=== PATIENT | male | born 1955 | race Caucasian/White ===

== ENCOUNTER → 2018-07-27 11:54 | Outpatient (CLI) | payer OTHER, SELFPAY ==
[2018-07-06 14:24] VITALS: BMI 32.0
--- NOTE | 2018-07-27 13:02 | PCM.CR.HP2 ---
CR - History & Physical - General Arrival date:: 07/27/18 Arrival time:: 12:00 Date of Referral:: 07/06/18 Date of CR Evaluation:: 07/27/18 Referring Physician: Mario Machado Primary Diagnosis: AMI < 12months, PTCA w/coronary stent - History of Present Cardiac Event Onset Date: Enter Onset Date of cardiac illnesses in Comment field below Acute Myocardial Infarction within 12 months:: Yes - 08/2017 PTCA or coronary stenting:: Yes - 08/2017 Type of Symptoms:: Having exacerbation thought to be related to lung history. Alot of back and chest pain originally thought it was due to her lung disease. - Medications Home Medications: Ambulatory Orders Medication Instructions Recorded albuterol sulfate HFA 90 2 puff INHALATION Q6H PRN 07/05/18 mcg/actuation aerosol inhaler atorvastatin 80 mg tablet 80 mg PO DAILY 07/05/18 ibuprofen 800 mg tablet 800 mg PO TID PRN 07/05/18 levothyroxine 175 mcg tablet 175 mcg PO DAILY 07/05/18 lisinopril 10 mg tablet 10 mg PO DAILY 07/05/18 metoprolol tartrate 25 mg tablet 25 mg PO BID 07/05/18 prednisone 5 mg tablet 5 mg PO DAILY 07/05/18 ticagrelor 90 mg tablet 90 mg PO BID 07/05/18 pantoprazole 40 mg tablet,delayed 40 mg PO DAILY 07/06/18 release spironolactone 25 mg tablet 12.5 mg PO DAILY tab 07/06/18 - Allergies Allergies/Adverse Reactions: Allergies amoxicillin Allergy (Unknown, Verified 07/06/18 14:27) unknown ampicillin Allergy (Unknown, Verified 07/06/18 14:27) unknown azithromycin [Zithromax] Allergy (Unknown, Verified 07/06/18 14:27) unknown cephalexin [From Keflex] Allergy (Unknown, Verified 07/06/18 14:27) unknown Cephalosporins Allergy (Unknown, Verified 07/06/18 14:27) unknown Penicillins Allergy (Unknown, Verified 07/06/18 14:27) Unknown enalapril Adverse Reaction (Unknown, Verified 07/06/18 14:27) unknown hydromorphone [From Dilaudid] Adverse Reaction (Unknown, Verified 07/06/18 14:27) unknown propylthiouracil Adverse Reaction (Unknown, Verified 07/06/18 14:27) unknown - Sleep Disorder Evaluation Hx of Sleep Apnea: Yes Do you snore loudly (louder than talking or can be heard through closed doors)?: Yes - first diagnosed with Pulm Fibrosis had sleep study and CPAP but was not able to tolerate due to the PF. Do you often feel tired/ fatigued/ sleepy during daytime?: No Has anyone observed you stop breathing during sleep?: No History of Hypertension (for STOP score): Yes STOP Results: Positive Advanced Directives - Advanced Directives Power of Case Management Rn: No Living Will: No Advance Directives Information Provided: Yes Advance Directives on File: No DNR Order?:: No - MOLST See MOLST form: No Past Medical History - Past Medical Illness Medical History: Past Medical History (Last Updated 07/27/18 @ 13:12 by Chin Ellis, AKASH, MIXING ROLL OPERATOR, BS) Hypertension (Chronic) I10 Hyperlipidemia (Chronic) E78.5 History of non-ST elevation myocardial infarction (NSTEMI) (Chronic) Onset Date: 09/12/17 I25.2 Atherosclerotic heart disease of [place] coronary artery without angina pectoris (Chronic) I25.10 Hx of NSTEMI and PCI to mid LAD 09/12/[address] Jose Herrera @ [facility] Pulmonary fibrosis (Chronic) J84.10 Hypothyroidism (Chronic) E03.9 COPD (chronic obstructive pulmonary disease) (Chronic) J44.9 FH: cholecystectomy Z83.79 biopsy; open lung cesarian section hysterectomy - Past Surgical History Surgical History: Past Surgical History (Last Updated 07/27/18 @ 13:11 by Chin Ellis CRT, MIXING ROLL OPERATOR, BS) History of thyroidectomy (Chronic) Z98.890 Stented coronary artery (Chronic) Onset Date: 09/12/17 Z95.5 3mm X 18 mm Xience Radha ARI to mid LAD per Dr. Jose Herrera @ [place] History of cholecystectomy Z90.49 - Family History Summary Family History: Family History (Last Reviewed 07/06/18 @ 14:24 by Yanni Luna) Father Negative for CAD Mother Negative for CAD Social History - Smoking History Smoking Status: Never smoker Hx Tobacco Use: No Hx Smoking Exposure: No - Alcohol Use Alcohol Usage: Yes - occasionally; wine 1-2 glassses week. 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 Recreational Activities: I am able to engage in all my recreational activities Social Environment - Status Marital Status: - Current Living Arrangements Living Environment:: Spouse - Children How many children do you have?: 5 - 1 of twins still at home Do any of your children live nearby?: Yes - Safety Do you feel safe in your surroundings?: Yes - Assistance Do you need any assistance at home?: none Review of Systems - Review of Systems Hints: Right click = Denies (Slash). Left click = Reports ([place]) Review of Present Symptoms: Reports: Shortness of Breath at Rest - occasionally due to the interstitial PF, Shortness of Breath with Exertion - depending on the day and what I am doing it can be worse. Yesterday, fore example raining cold damp was a bad day., Appetite - Normal, Appetite - Special Diet - try to watch what I eat, portion control, but not real special. Avoid extra sweets and bad foods., Sleep - Normal. Denies: Operative Discomfort, Angina, Dizziness/Lightheadedness, Fatigue - Pain Is Patient Pain Free?: No Pain Location: none Pain Level: 0/10 Risk Factor Assessment - Chief Complaint Chief Complaint: Patient presents to CR today following recent evaluation by Dr. Machado. The patient has a history of interstitial pulmonary fibrosis and originally though her problems were related to her lung disease, she essentially had a CT and subsequent PTCA w/ coronary stents in August 2017. - Vital Signs Temperature: 98.7 F Respiratory Rate: 18 Pulse Ox: 64 - at rest with 2 liters; at home can take it off when at rest. Blood Pressure: 120/70 Nailbeds:: normal - Pulse Pulse Rate: 64 Pulse Rhythm: Regular - Hypertension How long have you been treated?: 26 Blood Pressure Sitting - Right Arm: 120/70 - diagnosed with pregancy 26 years ago been on meds since - Diabetes Nutrition Referral for Diabetes: No - Obesity Height: 5 ft 9.5 in Weight:: 220 lb Weight in Pounds: 220.0 lbs Weight Source: Standing Scale Body Mass Index (BMI): 32.0 Nutritional Referral for Obesity: Yes - Physical Inactivity Physical Inactivity: Reg Exercise 30 min/day - Risk Stratification Risk Guidelines: Lowest Risk: Risk Factor for Smoking, Risk Factor for Dyslipidemia, Risk Factor for Diabetes, Risk Factor for Hypertension, Risk Factor for Sedentary Lifestyle, Risk Factor for Depression, Highest Risk: Risk Factor for Obesity - For Smoking Smoking Risk Guidelines: Smoking Low Risk: None or quit greater than 6 months ago. Smoking Moderate Risk: Smoker or quit 6 months or less ago. Smoking High Risk: Smoker - For Dyslipidemia Dyslipidemia Risk Guidelines: Low Risk: Moderate Risk: High Risk: 15-25% fat 25.1-29% fat >/= 30% fat. <7% sat fat 7-9% sat fat >9% sat fat. <150 mg chol 150-299 mg chol >/= 300 mg chol. LDL <100 LDL 100-129 LDL >/= 130. Chol/HDL ratio <5.0 Chol/HDL ratio 5.0-6.0 Chol/HDL ratio >6.0. Triglycerides <100 Triglycerides 100-149 Triglycerides >/= 150 - For Diabetes Mellitus Diabetes Risk Guidelines: Diabetes Low Risk: HgA1c <6.5% and/or FBG <120. Diabetes Moderate Risk: HgA1c 6.6-7.9% and/or FBG 120-180. Diabetes High Risk: HgA1c >/= 8% and/or FBG >180 - For Obesity/Overweight Obesity/Overweight Risk Guidelines: Obesity Low Risk: BMI <25.0. Obesity Moderate Risk: BMI 25-29.9. Obesity High Risk: BMI >/= 30.0 - For Hypertension Hypertension Risk Guidelines: Hypertension Low Risk: Systolic <120 and Diastolic <80. Hypertension Moderate Risk: Systolic 120-139 and Diastolic 80-89. Hypertension High Risk: Systolic >/= 140 and Diastolic >/= 90 - For Sedentary Lifestyle Sedentary Lifestyle Risk Guidelines: Sedentary Lifestyle Low Risk: >/= 1,500 kcal/week. Sedentary Lifestyle Moderate Risk: 700-1,499 kcal/week. Sedentary Lifestyle High Risk: < 700 kcal/week - For Depression Depression Risk Guidelines: Depression Low Risk: Not clinically depressed. Depression Moderate Risk: Mildly depressed. Depression High Risk: Clinically depressed - Family History Family History: Family History (Last Reviewed 07/06/18 @ 14:24 by Yanni Luna) Father Negative for CAD Mother Negative for CAD Motivation - Motivation to Participate On a scale of 1 to 10, how prepared are you to commit to attending program?: 8 What do you see as barriers to successfully being able to complete the program?: couple of missed sessions due to licensure etc. What do you see as the benefits of succesfully completing the program? In other words, what do you hope to get out of participating in the program?: improved health, learning on how to exercise corectly, controlling breathe Are there issues you are dealing with that will interfere with completing the program?: Scheduled vacation, licensure requirements, cause me to miss a few sessions Do you have a spouse or signficant other, family or friends who will help support you to complete the program?: yes.
--- NOTE | 2018-07-27 13:06 | CR.HP_ITS ---
CR - History & Physical - General Arrival date:: 07/27/18 Arrival time:: 12:00 Date of Referral:: 07/06/18 Date of CR Evaluation:: 07/27/18 Referring Physician: Mario Machado Primary Diagnosis: AMI < 12months, PTCA w/coronary stent - History of Present Cardiac Event Onset Date: Enter Onset Date of cardiac illnesses in Comment field below Acute Myocardial Infarction within 12 months:: Yes - 08/2017 PTCA or coronary stenting:: Yes - 08/2017 Type of Symptoms:: Having exacerbation thought to be related to lung history. Alot of back and chest pain originally thought it was due to her lung disease. - Medications Home Medications: Ambulatory Orders Medication Instructions Recorded albuterol sulfate HFA 90 2 puff INHALATION Q6H PRN 07/05/18 mcg/actuation aerosol inhaler atorvastatin 80 mg tablet 80 mg PO DAILY 07/05/18 ibuprofen 800 mg tablet 800 mg PO TID PRN 07/05/18 levothyroxine 175 mcg tablet 175 mcg PO DAILY 07/05/18 lisinopril 10 mg tablet 10 mg PO DAILY 07/05/18 metoprolol tartrate 25 mg tablet 25 mg PO BID 07/05/18 prednisone 5 mg tablet 5 mg PO DAILY 07/05/18 ticagrelor 90 mg tablet 90 mg PO BID 07/05/18 pantoprazole 40 mg tablet,delayed 40 mg PO DAILY 07/06/18 release spironolactone 25 mg tablet 12.5 mg PO DAILY tab 07/06/18 - Allergies Allergies/Adverse Reactions: Allergies amoxicillin Allergy (Unknown, Verified 07/06/18 14:27) unknown ampicillin Allergy (Unknown, Verified 07/06/18 14:27) unknown azithromycin [Zithromax] Allergy (Unknown, Verified 07/06/18 14:27) unknown cephalexin [From Keflex] Allergy (Unknown, Verified 07/06/18 14:27) unknown Cephalosporins Allergy (Unknown, Verified 07/06/18 14:27) unknown Penicillins Allergy (Unknown, Verified 07/06/18 14:27) Unknown enalapril Adverse Reaction (Unknown, Verified 07/06/18 14:27) unknown hydromorphone [From Dilaudid] Adverse Reaction (Unknown, Verified 07/06/18 14:27) unknown propylthiouracil Adverse Reaction (Unknown, Verified 07/06/18 14:27) unknown - Sleep Disorder Evaluation Hx of Sleep Apnea: Yes Do you snore loudly (louder than talking or can be heard through closed doors)?: Yes - first diagnosed with Pulm Fibrosis had sleep study and CPAP but was not able to tolerate due to the PF. Do you often feel tired/ fatigued/ sleepy during daytime?: No Has anyone observed you stop breathing during sleep?: No History of Hypertension (for STOP score): Yes STOP Results: Positive Advanced Directives - Advanced Directives Power of Auxiliary Powerplant Operator: No Living Will: No Advance Directives Information Provided: Yes Advance Directives on File: No DNR Order?:: No - MOLST See MOLST form: No Past Medical History - Past Medical Illness Medical History: Past Medical History (Last Updated 07/27/18 @ 13:12 by Chin Ellis, AKASH, FOREST AND CONSERVATION WORKER, BS) Hypertension (Chronic) I10 Hyperlipidemia (Chronic) E78.5 History of non-ST elevation myocardial infarction (NSTEMI) (Chronic) Onset Date: 09/12/17 I25.2 Atherosclerotic heart disease of [place] coronary artery without angina pectoris (Chronic) I25.10 Hx of NSTEMI and PCI to mid LAD 09/12/[address] Jose Herrera @ [facility] Pulmonary fibrosis (Chronic) J84.10 Hypothyroidism (Chronic) E03.9 COPD (chronic obstructive pulmonary disease) (Chronic) J44.9 FH: cholecystectomy Z83.79 biopsy; open lung cesarian section hysterectomy - Past Surgical History Surgical History: Past Surgical History (Last Updated 07/27/18 @ 13:11 by Chin Ellis CRT, FOREST AND CONSERVATION WORKER, BS) History of thyroidectomy (Chronic) Z98.890 Stented coronary artery (Chronic) Onset Date: 09/12/17 Z95.5 3mm X 18 mm Xience Radha ARI to mid LAD per Dr. Jose Herrera @ [place] History of cholecystectomy Z90.49 - Family History Summary Family History: Family History (Last Reviewed 07/06/18 @ 14:24 by Yanni Luna) Father Negative for CAD Mother Negative for CAD Social History - Smoking History Smoking Status: Never smoker Hx Tobacco Use: No Hx Smoking Exposure: No - Alcohol Use Alcohol Usage: Yes - occasionally; wine 1-2 glassses week. 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 Recreational Activities: I am able to engage in all my recreational activities Social Environment - Status Marital Status: - Current Living Arrangements Living Environment:: Spouse - Children How many children do you have?: 5 - 1 of twins still at home Do any of your children live nearby?: Yes - Safety Do you feel safe in your surroundings?: Yes - Assistance Do you need any assistance at home?: none Review of Systems - Review of Systems Hints: Right click = Denies (Slash). Left click = Reports ([place]) Review of Present Symptoms: Reports: Shortness of Breath at Rest - occasionally due to the interstitial PF, Shortness of Breath with Exertion - depending on the day and what I am doing it can be worse. Yesterday, fore example raining cold damp was a bad day., Appetite - Normal, Appetite - Special Diet - try to watch what I eat, portion control, but not real special. Avoid extra sweets and bad foods., Sleep - Normal. Denies: Operative Discomfort, Angina, Dizziness/Lightheadedness, Fatigue - Pain Is Patient Pain Free?: No Pain Location: none Pain Level: 0/10 Risk Factor Assessment - Chief Complaint Chief Complaint: Patient presents to CR today following recent evaluation by Dr. Machado. The patient has a history of interstitial pulmonary fibrosis and originally though her problems were related to her lung disease, she essentially had a [place] and subsequent PTCA w/ coronary stents in August 2017. - Vital Signs Temperature: 98.7 F Respiratory Rate: 18 Pulse Ox: 64 - at rest with 2 liters; at home can take it off when at rest. Blood Pressure: 120/70 Nailbeds:: normal - Pulse Pulse Rate: 64 Pulse Rhythm: Regular - Hypertension How long have you been treated?: 26 Blood Pressure Sitting - Right Arm: 120/70 - diagnosed with pregancy 26 years ago been on meds since - Diabetes Nutrition Referral for Diabetes: No - Obesity Height: 5 ft 9.5 in Weight:: 220 lb Weight in Pounds: 220.0 lbs Weight Source: Standing Scale Body Mass Index (BMI): 32.0 Nutritional Referral for Obesity: Yes - Physical Inactivity Physical Inactivity: Reg Exercise 30 min/day - Risk Stratification Risk Guidelines: Lowest Risk: Risk Factor for Smoking, Risk Factor for Dyslipidemia, Risk Factor for Diabetes, Risk Factor for Hypertension, Risk Factor for Sedentary Lifestyle, Risk Factor for Depression, Highest Risk: Risk Factor for Obesity - For Smoking Smoking Risk Guidelines: Smoking Low Risk: None or quit greater than 6 months ago. Smoking Moderate Risk: Smoker or quit 6 months or less ago. Smoking High Risk: Smoker - For Dyslipidemia Dyslipidemia Risk Guidelines: Low Risk: Moderate Risk: High Risk: 15-25% fat 25.1-29% fat >/= 30% fat. <7% sat fat 7-9% sat fat >9% sat fat. <150 mg chol 150-299 mg chol >/= 300 mg chol. LDL <100 LDL 100-129 LDL >/= 130. Chol/HDL ratio <5.0 Chol/HDL ratio 5.0-6.0 Chol/HDL ratio >6.0. Triglycerides <100 Triglycerides 100-149 Triglycerides >/= 150 - For Diabetes Mellitus Diabetes Risk Guidelines: Diabetes Low Risk: HgA1c <6.5% and/or FBG <120. Diabetes Moderate Risk: HgA1c 6.6-7.9% and/or FBG 120-180. Diabetes High Risk: HgA1c >/= 8% and/or FBG >180 - For Obesity/Overweight Obesity/Overweight Risk Guidelines: Obesity Low Risk: BMI <25.0. Obesity Moderate Risk: BMI 25-29.9. Obesity High Risk: BMI >/= 30.0 - For Hypertension Hypertension Risk Guidelines: Hypertension Low Risk: Systolic <120 and Diastolic <80. Hypertension Moderate Risk: Systolic 120-139 and Diastolic 80-89. Hypertension High Risk: Systolic >/= 140 and Diastolic >/= 90 - For Sedentary Lifestyle Sedentary Lifestyle Risk Guidelines: Sedentary Lifestyle Low Risk: >/= 1,500 kcal/week. Sedentary Lifestyle Moderate Risk: 700-1,499 kcal/week. Sedentary Lifestyle High Risk: < 700 kcal/week - For Depression Depression Risk Guidelines: Depression Low Risk: Not clinically depressed. Depression Moderate Risk: Mildly depressed. Depression High Risk: Clinically depressed - Family History Family History: Family History (Last Reviewed 07/06/18 @ 14:24 by Yanni Luna) Father Negative for CAD Mother Negative for CAD Motivation - Motivation to Participate On a scale of 1 to 10, how prepared are you to commit to attending program?: 8 What do you see as barriers to successfully being able to complete the program?: couple of missed sessions due to licensure etc. What do you see as the benefits of succesfully completing the program? In other words, what do you hope to get out of participating in the program?: improved health, learning on how to exercise corectly, controlling breathe Are there issues you are dealing with that will interfere with completing the program?: Scheduled vacation, licensure requirements, cause me to miss a few sessions Do you have a spouse or signficant other, family or friends who will help support you to complete the program?: yes.
--- NOTE | 2018-07-27 13:23 | CR.ITP_ITS ---
General Information - General Information Admitting Diagnosis: AMI <12 MONTHS, PTCA W/STENTS - Education/Goals Barriers to Learning: None Individual Counseling: Initial Assessment: High Blood Pressure, Overweight/Obesity Cardiac Rehabilitation Goals: 1. Maintain the individual as the primary focus of care. 2. To improve the patient's quality of life. 3. Identification of cardiac risk factors and provide cardiac risk factor management. 4. Enhance the psychosocial status of the patient. 5. Reconditioning enough to allow the patient to resume customary activities. 6. Control symptoms of cardiac disease Scale for measuring improvement of personal goals: Enter appropriate number in Comments. 2 = Unchanged. 3 = Slightly Better. 4 = Moderate Improvement. 5 = Met my Goal Personal Goals: Initial Assessment: Improve management of stress and emotions, Improve energy level, Participate in home exercise program, Improve knowledge of cardiac disease, Improve muscle strength and endurance, Control risk factors (learn risk factor modification) Exercise - Initial Assessment - Visit Date of Eval: 07/27/18 Session #:: 0 - Start - Stages of Change Stages of Change:: Action - Physician Prescribed Exercise Modalities: Treadmill, Airdyne, NuStep, SciFit Frequency (days/week): 3x/week for 12 weeks [36 sessions] Intensity: 60-80% age predicted maximum heart rate reserve METs - Progression: 0.5-1.0 MET, RPE 11-14 WEEK: 2.5 Target Heart Rate:: 110-126 - Hypertension Do any of the following apply?: Yes, Medication Resting Blood Pressure:: 120/70 - Intervention Home Exercise/Activity Goal:: Moderate Exercise 30 min/day x 5 days/wk - Education Goals:: Warm-up, RPE TOMASA Scale, S/S, Safe Exercise, Self-Monitoring - Exercise Program Goals Exercise Program Goals: Aerobic Activity >30 min Nutrition - Initial Assessment - Program Goals Nutrition Program Goals: LDL <70. Total Cholesterol <200. HDL >45. Triglycerides <150. HgbA1C <7%. BMI <25 - Visit Date of Assessment:: 07/27/18 - Stages of Change Stages of Change:: Action - Diabetes Diabetes:: No - Weight Management Height: 5 ft Weight:: 220 lb - Intervention Referral to dietitian:: No Referral to Diabetic Clinic:: No Will attend diet classes:: Yes - Education Gave educational materials for:: Healthy eating Tobacco - Initial Assessment - Program Goals Tobacco Program Goals: Complete smoking cessation. Attend education classes. Improve Knowledge Test score - Stage of Change Stages of Change:: Action - Learning Barriers Learning Barriers: Ready to Learn - Family Support Do you have family support?: Yes - Tobacco Use Tobacco Use: Non-smoker Do you use smokeless tobacco?: No - Intervention Smoking Cessation Referral:: No Individual Education/Counseling:: No Education Schedule Given:: Yes - Education Gave educational material for:: Coronary artery disease, Risk factors, Sexuality, Medical compliance, Cardiac A&P, Angina signs & symptoms Psychosocial - Initial Assess - Target Goals Target Goals: Assess presence or absence of depression. Using a valid screening tool, maximizes coping skills. Positive support system - Stages of Change Stages of Change:: Action - Psychosocial Test Tool Used:: HANDS Depression Questionnaire - Intervention PS - Interventions: Yes Attend Stress Management Classes, Yes Uses Stress Management Skills, No Referral to Mental Health, No Referral to [facility] Case Management, No Referral to Physician - Education Gave educational materials for:: Coping techniques, Signs & symptoms of depression, Stress management, Relaxation techniques - Patient/Program Goal Preventative Medication(s):: Aspirin, Clopidogrel, Beta harish, Statin/lipid - Assistive Devices Assistive Devices:: None Fall Risk Assessed:: Yes Patient Health Questionnaire Initial Assessment 1. Little interest or pleasure in doing things: Not at all 2. Feeling down, depressed, or hopeless: Not at all 3. Trouble falling or staying asleep, or sleeping too much: Not at all 4. Feeling tired or having little energy: More than half the days 5. Poor appetite or overeating: Not at all 6. Feeling bad about yourself -- or that you are a failure or have let yourself or your family down: Not at all 7. Trouble concentrating on things, such as reading the newspaper or watching television: Not at all 8. Moving or speaking so slowly that other people could have noticed. Or the opposite - being so fidgety or restless that you have been moving around a lot more than usual: Not at all 9. Thoughts that you would be better off , or of hurting yourself in some way: Not at all How difficult have these problems made it for you to do your work, take care of things at home, or get along with other people?: Not difficult at all Total Score: 2 DORA-Q SV Test - Statements CAD is a disease of the arteries in the heart: False Examples of risk factors for heart disease: True Angina is chest pain or discomfort: True The benefits of resistance training include: True Eating more meat and dairy products: False Anti-platelet medications such as aspirin are important: True The only effective way to manage stress: False An exercise warm-up slowly increases heart rate: True Prepared, processed foods usually have high sodium: True Depression is common after a heart attack: False The statin medications lower cholesterol: True To control blood pressure, lower the amount of sodium: True If someone gets chest discomfort during walking: True Transfats are partially hydrogenated vegetable oils: True Sleep apnea that is not treated increases the risk: I Don't Know To control cholesterol, one should become a vegetarian: False Someone knows if he/she is exercising at the right level: False Diabetes cannot be prevented with exercise & health eating: False Stress is a large risk for heart attack: True A diet that can help lower blood pressure is rich in: True - Total Score Total Correct Responses: 16 Self-Efficacy Initial Assessment We would like to know how confident you are in doing certain activities. Please select your confidence level for:: Select your confidence level for the following using the scale 1-10 where 1 is not at all confident and 10 is totally confident. Your score is the average of all 6 responses. Fatigue: How confident are you that you can keep the fatigue caused by your disease from interfering with the things you want to do? Select Number: 6 Physical Discomfort or Pain: How confident are you that you can keep the physical discomfort or pain of your disease from interfering with the things you want to do? Select Number: 6 Emotional Distress: How confident are you that you can keep the emotional distress caused by your disease from interfering with the things you want to do? Select Number: 5 Other Symptoms or Health Problems: How confident are you that you can keep other symptoms or health problems from interfering with the things you want to do? Select Number: 6 Different Tasks and Activities: How confident are you that you can do the different tasks and activities needed to manage your health condition so as to reduce your need to see a doctor? Select Number: 6 Medication: How confident are you that you can do things other than just taking medication to reduce how much your illness affects your everyday life? Select Number: 8 Total Score:: 6 Nutrition Survey - Nutrition Survey Instructions Scoring Instructions: Scoring is as follows: Yes = 1 points. No = 0 point. Patient score that is >/=12 is considered to be at potential nutritional risk and could benefit from a referral to a registered dietitian. - Nutrition Survey Initial Have you lost >10 lbs over the past 2 months without trying?: No Are you following a special diet at home for diabetes, low fat, or low salt?: Yes Are you interested in meeting with a dietitian for help understanding your diet?: No Do you eat less than 3 meals a day?: No Do you eat fatty meats (ruiz, sausage, ribs, etc), fried foods, desserts, large amounts of salad dressings, margarine, butter, or cheese most days?: Yes Do you have food allergies? [Enter types in comment field]: No Do you eat in restaurants more than 3 times a week?: Yes Do you season food with salt, seasoning salt, or garlic salt?: Yes Do you used canned, boxed, frozen meals, or soups, seasoning packets?: Yes Total Score:: 5
[2018-07-27 13:27] VITALS: BP 120/70; PULSE 64; RESP 18; TEMP 37.1; O2SAT 64; BMI 32.0
[2018-07-27 13:38] VITALS: BP 120/70
== END ==
PROVIDERS: Family Provider Family Medicine; PCP Family Medicine; Referring Provider Internal Medicine Cardiovascular Disease; Visit Provider Internal Medicine Cardiovascular Disease
DX: Z95.5 Presence of coronary angioplasty implant and graft (principal)

== ENCOUNTER 2018-08-02 06:38 | Outpatient (RCR) | payer OTHER, SELFPAY ==
[2018-07-27 13:27] VITALS: BMI 32.0
== END 2018-08-27 23:59 ==
LOC: CR 06:38
PROVIDERS: Family Provider Family Medicine; PCP Family Medicine; Referring Provider Internal Medicine Cardiovascular Disease; Visit Provider Internal Medicine Cardiovascular Disease
DX: I25.10 Atherosclerotic heart disease of native coronary artery without angina pectoris (principal); Z95.5 Presence of coronary angioplasty implant and graft
CPT/HCPCS: 93798

== ENCOUNTER → 2018-08-09 12:48 | Outpatient (CLI) | payer OTHER, SELFPAY ==
[2018-07-06 14:24] VITALS: BMI 32.0
[2018-08-04 10:58] VITALS: BMI 32.5
--- NOTE | 2018-08-09 12:51 | ECHOCS_ITS ---
Reason For Study: PHTN Procedure This was a 2D Doppler, Color Flow transthoracic echocardiogram. Contrast injection was performed. Exam performed in department. Left Ventricle Normal size and thickness. The estimated ejection fraction is 65 %. Stage 1 diastolic dysfunction. No regional wall motion abnormalities noted. Right Ventricle Mildly dilated right ventricle. Normal systolic function. Atria Normal left atrium. Normal right atrium. Normal atrial septum. Mitral Valve The mitral valve is structurally normal. No prolapse or stenosis seen. Trivial mitral valve insufficiency. Tricuspid Valve Normal tricuspid valve. Trivial tricuspid valve insufficiency. Right ventricular systolic pressure estimated to be 53 mmHg. Moderate pulmonary hypertension. Aortic Valve Trisinus/trileaflet aortic valve. Normal aortic valve. Pulmonic Valve Normal pulmonic valve. Great Vessels Normal aortic root. Normal arch. Normal inferior vena cava. Inferior vena cava collapse with sniff. Pericardium/Pleural No pericardial effusion. Medication 22 gauge I.V. with prn adaptor inserted into right arm. Diluted definity 3ml given slow IV push to enhance endocardial definition. MMode/2D Measurements & Calculations LVIDd: 4.3 cm IVSd: 1.2 cm Ao root diam: 3.4 cm LVIDs: 2.6 cm LVPWd: 1.1 cm RVDd: 3.7 cm FS: 40.4 % LAV(MOD-bp): 35.7 ml LVAd ap4: 30.6 cm2 SV(MOD-sp4): 60.5 ml LAV(MOD-bp) Indexed: 16.6 ml/m2 EDV(MOD-sp4): 91.9 ml LAV(MOD-sp2): 31.2 ml EDV(sp4-el): 94.2 ml LAV(MOD-sp4): 35.7 ml LVAs ap4: 16.5 cm2 ESV(MOD-sp4): 31.4 ml ESV(sp4-el): 31.8 ml EF(MOD-sp4): 65.8 % EF(sp4-el): 66.3 % SV(sp4-el): 62.4 ml LA A4 area: 14.8 cm2 RA A4 area: 10.8 cm2 Time Measurements MV dec time: 0.25 sec Doppler Measurements & Calculations MV E max jose antonio: 71.2 cm/sec Lat Peak E' Jose Antonio: 7.6 cm/sec Med Peak E' Jose Antonio: 7.7 cm/sec MV A max jose antonio: 97.1 cm/sec E/E' lat: 9.4 E/E' med: 9.3 MV E/A: 0.73 MV V2 max: 99.2 cm/sec MV P1/2t max jose antonio: 79.0 cm/sec Ao V2 max: 151.2 cm/sec MV max P.9 mmHg MV P1/2t: 95.0 msec Ao max P.1 mmHg MV V2 mean: 55.7 cm/sec Ao V2 mean: 93.9 cm/sec MV mean P.5 mmHg MV dec slope: 243.5 cm/sec2 Ao mean P.2 mmHg MV V2 VTI: 22.2 cm MVA(P1/2t): 2.3 cm2 Ao V2 VTI: 28.4 cm LV V1 max: 127.2 cm/sec PA V2 max: 83.8 cm/sec TR max jose antonio: 345.8 cm/sec LV V1 max P.5 mmHg TR max P.8 mmHg LV V1 mean P.2 mmHg LV V1 mean: 82.7 cm/sec LV V1 VTI: 25.3 cm Interpretation Summary The estimated ejection fraction is 65 %. Stage 1 diastolic dysfunction. Mildly dilated right ventricle. Trivial mitral valve insufficiency. Trivial tricuspid valve insufficiency. Right ventricular systolic pressure estimated to be 53 mmHg. Moderate pulmonary hypertension. The study was technically difficult. Contrast injection was performed. There is no comparison study available. Ordering Physician: Mario Machado Referring Physician: Mario Machado Performed By: Nabor Cook RCS
== END ==
LOC: CVS 12:50
PROVIDERS: Family Provider Family Medicine; PCP Family Medicine; Referring Provider Internal Medicine Cardiovascular Disease; Visit Provider Internal Medicine Cardiovascular Disease
DX: I25.10 Atherosclerotic heart disease of native coronary artery without angina pectoris (principal); I27.20 Pulmonary hypertension, unspecified; I25.2 Old myocardial infarction; J44.9 Chronic obstructive pulmonary disease, unspecified
CPT/HCPCS: 93306; Q9957; A4216; C8929

== ENCOUNTER → 2018-08-12 12:22 | Outpatient (CLI) | payer OTHER, SELFPAY ==
[2018-07-06 14:24] VITALS: BMI 32.0
[2018-08-04 10:58] VITALS: BMI 32.5
--- NOTE | 2018-08-12 12:24 | STEWCON_ITS ---
Reason For Study: DYSPNEA/SOB Stress Results Protocol: Stress Echocardiogram Maximum Predicted HR: 158 bpm Target HR: 134 bpm % Maximum Predicted HR: 86 % DurationHeart Rate Stage (mm:ss) (bpm) BP Dose Comment BASELINE 81 135/76 PO 99% ON 2L O2, DILUTED DEFINITY 4CC USED DSE- 10 MCG 3:21 117 128/6210.00PO 99% DSE- 20 MCG 3:14 136 124/6920.00PO 99%, FELT WARMNESS ON R SIDE OF CHEST RECOVERY 98 106/77 Stress Duration: 6:35 mm:ss Maximum Stress HR: 136 bpm Baseline Echocardiogram Findings The estimated ejection fraction is 65 %. Stress Echo Wall motion Data Resting WM Intermediate WM Stress WM Resting Wall Motion Wall Motion Stress No regional wall motion No regional wall motion abnormalities noted. abnormalities noted. EKG Data The baseline ECG displays normal sinus rhythm. The patient was titrated from 10 mcg to a maximum of 20 mcg of dobutamine during the stress. The maximum heart rate attained was 136 beats per minute. This was 86% of maximum predicted heart rate. During dobutamine infusion, there were no ST or T wave changes noted to suggest ischemia. No clinical angina was noted. No arrhythmias noted. Interpretation Summary The estimated ejection fraction is 65 %. Normal, adequate, treadmill echocardiogram. Negative for ischemia by EKG and echocardiographic criteria. No anginal symptoms noted. Rare PACs noted. Appropriate blood pressure response to exercise. Final LVEF is 75%. Below average exercise capacity for age. Test terminated due to attainment target heart rate, fatigue and dyspnea. Patient had no evidence of anterior wall ischemia by echocardiogram. Decreased sensitivity due to poor echo windows requiring Definity agent. Final LVEF is 75%. No complications. The study was technically difficult. Contrast injection was performed. Ordering Physician: Mario Machado Referring Physician: Mario Machado Performed By: Josey Corado, RDCS, RVT
== END ==
LOC: CVS 12:23
PROVIDERS: Family Provider Family Medicine; PCP Family Medicine; Referring Provider Internal Medicine Cardiovascular Disease; Visit Provider Internal Medicine Cardiovascular Disease
DX: I25.10 Atherosclerotic heart disease of native coronary artery without angina pectoris (principal); J84.10 Pulmonary fibrosis, unspecified; J44.9 Chronic obstructive pulmonary disease, unspecified; Z95.5 Presence of coronary angioplasty implant and graft
CPT/HCPCS: 93017; 93350; J7040; Q9957; A4216; C8928

== ENCOUNTER 2018-08-14 15:55 | Emergency (ER) | payer OTHER, SELFPAY ==
[2018-08-04 10:58] VITALS: BMI 32.5
[2018-08-14 15:56] VITALS: BP 128/70; PULSE 83; RESP 18; TEMP 36.4; O2SAT 96; BMI 31.2
--- NOTE | 2018-08-14 16:18 | ED.DCSUM_ITS ---
History of Present Illness Chief Complaint: Cellulitis Informant: Patient Onset: Weeks - 2 Narrative: Presents for wound evaluation of right forearm, reports may have had a bug bite initially draining itching. Recently stopped draining recent swelling and pain. No fevers. No history of diabetes. Pain worse with palpation. Patient on chronic prednisone for interstitial fibrosis. Prior similar symptoms: No Past Medical History - Allergies and Home Meds Allergies/Adverse Reactions: Allergies enalaprilat [From Vasotec] Allergy (Severe, Verified 08/14/18 15:56) Unknown amoxicillin Allergy (Unknown, Verified 08/14/18 15:56) unknown ampicillin Allergy (Unknown, Verified 08/14/18 15:56) unknown azithromycin [Zithromax] Allergy (Unknown, Verified 08/14/18 15:56) unknown cephalexin [From Keflex] Allergy (Unknown, Verified 08/14/18 15:56) unknown Cephalosporins Allergy (Unknown, Verified 08/14/18 15:56) unknown Penicillins Allergy (Unknown, Verified 08/14/18 15:56) Unknown enalapril Adverse Reaction (Unknown, Verified 08/14/18 15:56) unknown hydromorphone [From Dilaudid] Adverse Reaction (Unknown, Verified 08/14/18 15:56) unknown propylthiouracil Adverse Reaction (Unknown, Verified 08/14/18 15:56) unknown Primary Care Physician: Srinath Lucia MD [Primary Care Provider] - Smoking Status: Never smoker Review of Systems All systems negative except as indicated General: Denies: Fever Gastrointestinal: Denies: Nausea, Vomiting Skin: Reports: Abscess Neurological: Denies: Parasthesia Physical Exam Vital Signs/Narrative: Vital Signs Temp Pulse Resp BP Pulse Ox 08/14/18 15:56 97.5 F L 83 18 128/70 H 96 Inital Vital Signs reviewed: Yes General: Well nourished, Well developed, No Acute Distress Head: Normocephalic, Atraumatic Eyes: Perrl, EOMI ENT: Moist mucous membranes, No rhinorrhea Neck: Supple, Nontender Cardiovascular: Regular rate, Regular rhythm, No murmurs Respiratory: No distress, CTA bilaterally, Chest nontender Abdomen: Soft, Nontender, Nondistended, Normal bowel sounds Back: Nontender, Normal Inspection Extremities: Nontender, No edema Skin: - - Right upper extremity: Forearm mid dorsal to have some induration, 1 cm fluctuance with a scab. Mild erythema surrounding, no streaking. Mild tender palpation. No active drainage. Neurological: Alert, Oriented x3, Cranial nerves II-XII grossly intact, Normal Strength, Normal Sensation Psychological: Normal affect, Normal Mood Diagnostic/Tx/Re-eval - Medical Decision Making Patient exam concerns for localized abscess with fluctuance. Discussed incision and drainage she agreed. Performed without complications. Wound care discussed. Due to being on chronic prednisone with immunosuppressant will start Bactrim for which she has tolerated. She cannot give penicillins or cephalosporins. She denies any kidney injury history. She will follow-up with her PCP for wound check. All questions were answered. Procedures Procedure(s): Incision and drainage: Verbal consent. Normal sterile fashions. Skin was prepped with alcohol pads. 2 cc lidocaine 1% for local analgesia. A c ruciate incision was made mild exudates, copiously flushed with sterile water. Patient tolerated procedure well. ED Disposition - Plan for ED Patient: Disposition: Home or Assisted Living Diagnosis: Abscess of right forearm, Status post incision and drainage Instructions: ED Abscess IandD Prescriptions: Smz/Tmp Ds [Bactrim Ds] 1 tablet PO BID #20 tablet Referrals: Srinath Lucia MD [Primary Care Provider] - 3-5 Days
[2018-08-14] MEDS: Smz/Tmp Ds Tablet 1 TABLET PO (17:12)
== END 2018-08-14 17:15 | disposition home or self-care (01) ==
PROVIDERS: Emergency Provider Emergency Medicine; Family Provider Family Medicine; PCP Family Medicine
DX: L02.413 Cutaneous abscess of right upper limb (principal)
CPT/HCPCS: 10060; 99284

== ENCOUNTER 2018-08-30 08:21 | Outpatient (RCR) | payer OTHER, SELFPAY ==
[2018-08-28 00:24] VITALS: BMI 32.0
== END 2018-09-26 23:59 ==
LOC: CR 08:21
PROVIDERS: Family Provider Family Medicine; PCP Family Medicine; Referring Provider Internal Medicine Cardiovascular Disease; Visit Provider Internal Medicine Cardiovascular Disease
DX: I25.10 Atherosclerotic heart disease of native coronary artery without angina pectoris (principal); Z95.5 Presence of coronary angioplasty implant and graft
CPT/HCPCS: 93798

== ENCOUNTER → 2018-09-15 10:58 | Outpatient (CLI) | payer OTHER, SELFPAY ==
[2018-08-04 10:58] VITALS: BMI 32.5
[2018-08-28 00:24] VITALS: BMI 32.0
[2018-09-15 11:35] VITALS: PULSE 105; PULSE 107; PULSE 109; PULSE 119; PULSE 120; PULSE 93; PULSE 94; O2SAT 86; O2SAT 88; O2SAT 90; O2SAT 91; O2SAT 92; O2SAT 94; O2SAT 95; O2SAT 96
--- NOTE | 2018-09-15 11:45 | CPS ---
Patient came in on her home O2 of 2 lpm. Resting SpO2 94%, started walk on room air. Placed patient on 2 lpm by the 2nd minute due to SpO2 86%. Patient walked the remainder of the test on 2 lpm and dropped to 88% right when the 6 minutes was over.
--- NOTE | 2018-09-16 08:35 | PCM.PSN.6M ---
PSN 6 Minute Walk Test - 6 Minute Walk Test 6 Minute Walk Test: 6 Minute Walk Test PSN:6-Minute Walk Test Start: 09/15/18 11:35 Freq: Status: Active Protocol: RESP.6MINW Document 09/15/18 11:35 MIC (Rec: 09/15/18 11:50 MIC [id number]) 6 Minute Walk Test Date Performed 09/15/18 Time Performed 11:00 Height 5 ft 9 in Weight: 214 lb Weight in Pounds 214.[address]: Joesph Hoffman Assistive device used: None Pre-test Oxygen Delivery Method Room Air Pulse Ox (%) 94 Pulse Rate (60-100 beats/min) 94 Dyspnea Michael Scale (0-10) 0 Exertion Michael Scale (6-20) 6 1st minute Oxygen Delivery Method Room Air Pulse Ox (%) 91 Pulse Rate (60-100 beats/min) 105 H 2nd minute Oxygen Delivery Method Room Air Pulse Ox (%) 86 Pulse Rate (60-100 beats/min) 109 H Dyspnea Michael Scale (0-10) 0.5 3rd minute Oxygen Flow Rate (L/min) (L/min) 2 Oxygen Delivery Method Nasal Cannula Pulse Ox (%) 95 Pulse Rate (60-100 beats/min) 107 H 4th minute Oxygen Flow Rate (L/min) (L/min) 2 Oxygen Delivery Method Nasal Cannula Pulse Ox (%) 92 Pulse Rate (60-100 beats/min) 120 H 5th minute Oxygen Flow Rate (L/min) (L/min) 2 Oxygen Delivery Method Nasal Cannula Pulse Ox (%) 90 Pulse Rate (60-100 beats/min) 119 H 6th minute Oxygen Flow Rate (L/min) (L/min) 2 Oxygen Delivery Method Nasal Cannula Pulse Ox (%) 88 Pulse Rate (60-100 beats/min) 119 H Dyspnea Michael Scale (0-10) 0.5 Exertion Michael Scale (6-20) 12 Post-test Oxygen Flow Rate (L/min) (L/min) 2 Oxygen Delivery Method Nasal Cannula Pulse Ox (%) 96 Pulse Rate (60-100 beats/min) 93 Full Laps Walked 12 Partial Lap, Number of Tiles Walked 15 Total Distance Walked (ft) 723 09/15/18 11:45 Cardiopulmonary Services by Marily Carranza Patient came in on her home O2 of 2 lpm. Resting SpO2 94%, started walk on room air. Placed patient on 2 lpm by the 2nd minute due to SpO2 86%. Patient walked the remainder of the test on 2 lpm and dropped to 88% right when the 6 minutes was over. Initialized on 09/15/18 11:45 - END OF NOTE - Interpretation Interpretation: The patient ambulated 723 feet over the course of 6 minutes beginning on room air without assistive devices or breaks. Pretesting oxygen saturation was noted to be 94% on room air. With ambulation, the karen oxygen saturation was 86%. 2 L/min of supplemental oxygen was applied and the patient was able to complete the remainder of the test. - Recommendations Recommendations: 2 L/min of supplemental oxygen should be utilized with exertion.
== END ==
LOC: PSN 10:58
PROVIDERS: Family Provider Family Medicine; PCP Family Medicine; Referring Provider Internal Medicine Critical Care Medicine; Visit Provider Internal Medicine Critical Care Medicine
DX: J84.10 Pulmonary fibrosis, unspecified (principal); J84.117 Desquamative interstitial pneumonia
CPT/HCPCS: 94618

== ENCOUNTER → 2019-02-15 10:17 | Outpatient (CLI) | payer OTHER, SELFPAY ==
[2019-02-10 14:15] VITALS: BMI 31.3
[2019-02-15 11:31] LABS: AST(SGOT) 29 U/L (15-37); Alanine Aminotransfer ALT/SGPT 21 U/L (16-61); Albumin, Serum 3.7 g/dL (3.2-5.0); Alkaline Phosphatase 94 U/L (45-117); Bilirubin, Direct 0.11 mg/dL (0.00-0.30); Cholesterol 162 mg/dL (200); Globulin 4.4 g/dL (2.2-4.2); High Density Lipoprotein 72 mg/dL; Protein, Total 8.1 g/dL (6.4-8.2); Triglycerides 98 mg/dL; Very Low Density Lipoprotein 20 mg/dL (5-40)
== END ==
PROVIDERS: Family Provider Family Medicine; PCP Family Medicine; Referring Provider Internal Medicine Cardiovascular Disease; Visit Provider Internal Medicine Cardiovascular Disease
DX: E78.5 Hyperlipidemia, unspecified (principal); I25.10 Atherosclerotic heart disease of native coronary artery without angina pectoris
CPT/HCPCS: 36415; 80061; 80076

== ENCOUNTER → 2019-08-01 12:47 | Outpatient (CLI) | payer OTHER, SELFPAY ==
[2019-02-04 06:44] VITALS: BMI 31.6
[2019-03-09 12:34] VITALS: BMI 31.3
--- NOTE | 2019-08-04 11:18 | PFT ---
INTRODUCTION: The patient is a 63-year-old female that presents for pulmonary function studies secondary to a diagnosis of ILD. Respiratory therapy reports good patient effort. Bronchodilators were used during testing. INTERPRETATION: Forced expiration spirometry demonstrates no evidence of a large airways obstructive ventilatory defect. There was no significant response to aerosolized bronchodilators. Spirograms are of good quality and plateau normally. Body plethysmography was performed and reveals a decreased TLC to 60% of predicted, indicative of a moderate restrictive ventilatory impairment. The remainder of the lung volumes are symmetrically reduced. Diffusing capacity by single breath CO is reduced at 32% of predicted. IMPRESSION: Isolated moderate restrictive ventilatory impairment with symmetric reduction in diffusing capacity.
== END ==
PROVIDERS: Family Provider Family Medicine; PCP Family Medicine; Referring Provider Internal Medicine Critical Care Medicine; Visit Provider Internal Medicine Critical Care Medicine
DX: J84.10 Pulmonary fibrosis, unspecified (principal); J84.117 Desquamative interstitial pneumonia
CPT/HCPCS: 94060; 94726; 94729

== ENCOUNTER → 2020-05-24 12:47 | Outpatient (CLI) | payer OTHER, SELFPAY ==
[2020-03-12 14:22] VITALS: BMI 31.1
--- NOTE | 2020-05-24 12:49 | ECHOCS_ITS ---
Reason For Study: Murmur Procedure This was a 2D Doppler, Color Flow transthoracic echocardiogram. The study was technically difficult. Exam performed in department. Left Ventricle Normal LV size. Left ventricular systolic function is normal. The estimated ejection fraction is 55 %. Stage 1 diastolic dysfunction. No regional wall motion abnormalities noted. Right Ventricle Normal RV size. Normal systolic function. Atria Normal left atrium. Normal right atrium. Mitral Valve Normal mitral valve. Mild (1+) eccentric mitral valve insufficiency. Tricuspid Valve Normal tricuspid valve. Mild (1+) tricuspid valve insufficiency. Pulmonary artery systolic pressure is 40 mmHg. Aortic Valve Trisinus/trileaflet aortic valve. Mild focal aortic valve calcification. Pulmonic Valve Normal pulmonic valve. Great Vessels Normal aortic root. The pulmonary artery is normal size. Normal inferior vena cava. Pericardium/Pleural No pericardial effusion. Medication 22 gauge I.V. with prn adaptor inserted into right arm. Diluted definity 3ml given slow IV push to enhance endocardial definition. MMode/2D Measurements & Calculations LVIDd: 4.3 cm IVSd: 1.1 cm Ao root diam: 3.6 cm LVIDs: 2.7 cm LVPWd: 0.95 cm RVDd: 3.3 cm FS: 38.9 % LAV(MOD-bp): 34.9 ml LA A4 area: 15.5 cm2 LA dimension(2D): 5.0 cm LAV(MOD-bp) Indexed: 16.5 ml/m2 LAV(MOD-sp2): 35.3 ml LAV(MOD-sp4): 32.9 ml RA A4 area: 9.0 cm2 Doppler Measurements & Calculations MV E max jose antonio: 94.1 cm/sec Lat Peak E' Jose Antonio: 10.7 cm/sec Med Peak E' Jose Antonio: 6.3 cm/sec MV A max jose antonio: 94.1 cm/sec E/E' lat: 8.8 E/E' med: 15.0 MV E/A: 1.0 Ao V2 max: 163.8 cm/sec LV V1 max: 106.1 cm/sec PA V2 max: 88.4 cm/sec Ao max P.7 mmHg LV V1 max P.5 mmHg TR max jose antonio: 305.0 cm/sec TR max P.2 mmHg Interpretation Summary Normal LV size. Left ventricular systolic function is normal. The estimated ejection fraction is 55 %. Pulmonary artery systolic pressure is 40 mmHg. Stage 1 diastolic dysfunction. Contrast injection was performed. Ordering Physician: Bridgette Reese/Eric Gilbert Referring Physician: Srinath Lucia Performed By: Xochitl Deutsch RDCS
== END ==
LOC: CVS 12:48
PROVIDERS: PCP Family Medicine; Referring Provider Physician Assistant Medical; Visit Provider Physician Assistant Medical
DX: R01.1 Cardiac murmur, unspecified (principal)
CPT/HCPCS: 93306; Q9957; A4216; C8929

== ENCOUNTER → 2020-09-26 14:40 | Outpatient (CLI) | payer MEDICARE, SELFPAY ==
[2020-06-20 10:13] VITALS: BMI 30.7
--- NOTE | 2020-09-26 14:55 | CT_ITS ---
HISTORY: pulmonary fibrosis. TECHNIQUE: Helically acquired images were obtained of the chest without contrast. A radiation dose optimization technique was used for this scan. # of images incl. paperwork: [id number]. COMPARISON: None. FINDINGS: LARGE AIRWAYS: Clear. LUNGS: Reticular opacities with traction bronchiectasis in a basilar predominance with mild-moderate fibrosis of the lung bases. PLEURA: No pleural effusion. HEART AND PERICARDIUM: Mild cardiomegaly with coronary artery disease. No pericardial effusion. VESSELS: Thoracic aorta nondilated. Dilated main pulmonary arteries. MEDIASTINUM AND JASON: Borderline enlarged mediastinal lymph nodes. UPPER ABDOMEN: Subcentimeter left renal cyst. Cholecystectomy. SOFT TISSUES: Unremarkable. BONES: Osteopenia and degenerative change. Chronic T4, T5, T6 compression fractures. CT/Chest without Contrast IMPRESSION: Pulmonary fibrosis. Mild cardiomegaly. Pulmonary hypertension. Individualized dose optimization techniques were used for this CT. at 1508 Reported and signed by: Afsaneh Martel MD Electronically Signed: Afsaneh Martel MD at 15:07 EDT Tel , Service support ,
== END ==
PROVIDERS: PCP Family Medicine; Referring Provider Nurse Practitioner Acute Care; Visit Provider Nurse Practitioner Acute Care
DX: J84.10 Pulmonary fibrosis, unspecified (principal)
CPT/HCPCS: 71250

== ENCOUNTER → 2020-11-02 10:38 | Outpatient (CLI) | payer MEDICARE, SELFPAY ==
[2020-06-20 10:13] VITALS: BMI 30.7
[2020-10-30 11:05] VITALS: BMI 29.8
--- NOTE | 2020-11-02 15:08 | PFTCOMP_ITS ---
COMPLETE PULMONARY FUNCTION TEST INTERPRETATION Brief HPI: Patient is a 65 year old female, currently under the care of myself, who presents to [facility] for complete pulmonary function tests secondary to diagnosis of pulmonary fibrosis. Respiratory therapist reports good effort and reproducible results. Interpretation: Forced expiration spirometry shows no large airways obstructive ventilatory defect with an FEV1 of 46% predicted. There is no significant bronchodilator response by strict ATS criteria. Spirograms are of good quality and plateau normally. The respiratory flow volume loop shows a normal pattern. Lung volumes by body plethysmography show a severely decreased total lung capacity at 2.5 L, 43% predicted. All other lung volumes are reduced symmetrically. Diffusion capacity by carbon monoxide is decreased at 30% predicted. The airway resistance is elevated. Compared to previous pulmonary function tests from 08/01/2019, there is been a significant reduction in all measured values. Impression: Severe restrictive ventilatory defect with a symmetric reduction diffusion capacity and significant worsening over the last year.
== END ==
PROVIDERS: PCP Family Medicine; Referring Provider Internal Medicine Critical Care Medicine; Visit Provider Internal Medicine Critical Care Medicine
DX: J84.10 Pulmonary fibrosis, unspecified (principal); J96.11 Chronic respiratory failure with hypoxia
CPT/HCPCS: 94060; 94726; 94729

== ENCOUNTER 2021-05-08 10:30 | Outpatient (CLI) | payer MEDICARE, SELFPAY ==
--- NOTE | 2021-05-09 10:49 | PFT ---
INTRODUCTION: The patient is a 65-year-old female that presents for pulmonary function studies secondary to a diagnosis of pulmonary fibrosis. Respiratory therapy reported good patient effort. Bronchodilators were used during testing. INTERPRETATION: Forced expiration spirometry demonstrates no evidence of a large airways obstructive ventilatory defect. There was no significant response to aerosolized bronchodilators. Spirograms are of good quality and plateau normally. Body plethysmography was performed and revealed a decreased TLC to 2.67 L, 44% of predicted, indicative of a severe restrictive ventilatory impairment. Diffusing capacity by single breath CO is severely reduced at 30% of predicted. IMPRESSION: Severe restrictive ventilatory impairment with symmetric reduction in diffusing capacity.
== END 2021-05-08 23:59 | disposition home or self-care (01) ==
LOC: PSN 10:32
PROVIDERS: PCP Family Medicine; Referring Provider Internal Medicine Critical Care Medicine; Visit Provider Internal Medicine Critical Care Medicine
DX: J84.10 Pulmonary fibrosis, unspecified (principal)
CPT/HCPCS: 94060; 94726; 94729

== ENCOUNTER 2021-05-15 10:26 | Outpatient (CLI) | payer MEDICARE, SELFPAY ==
[2021-05-15 11:27] LABS: AST(SGOT) 31 U/L (15-37); Alanine Aminotransfer ALT/SGPT 22 U/L (13-56); Albumin, Serum 3.7 g/dL (3.2-5.0); Alkaline Phosphatase 81 U/L (45-117); Bilirubin, Direct 0.17 mg/dL (0.00-0.30); Globulin 4.1 g/dL (2.2-4.2); Protein, Total 7.8 g/dL (6.4-8.2)
== END 2021-05-15 23:59 | disposition home or self-care (01) ==
LOC: PAVLAB 10:27
PROVIDERS: PCP Family Medicine; Referring Provider Nurse Practitioner Acute Care; Visit Provider Nurse Practitioner Acute Care
DX: J84.10 Pulmonary fibrosis, unspecified (principal)
CPT/HCPCS: 36415; 80076

== ENCOUNTER → 2021-11-29 | Outpatient (CLI) | payer MEDICARE, SELFPAY ==
--- NOTE | 2021-11-29 12:43 | PFTCOMP_ITS ---
COMPLETE PULMONARY FUNCTION TEST INTERPRETATION Brief HPI: Patient is a 66 -year-old female, currently under the care of myself, who presents to [facility] for complete pulmonary function tests secondary to diagnosis of pulmonary fibrosis. Respiratory therapist reports good effort and reproducible results. Interpretation: Forced expiration spirometry shows no large airways obstructive ventilatory defect with an FEV1 of 52% predicted. There is no significant bronchodilator response by strict ATS criteria. Spirograms are of good quality and plateau normally. The respiratory flow volume loop shows a normal pattern. Lung volumes by body plethysmography show a decreased total lung capacity at 3 L, 50% predicted. All other lung volumes are reduced symmetrically. Diffusion capacity by carbon monoxide is decreased at 33% predicted. The airway resistance is elevated. Compared to previous pulmonary function tests from 05/08/21, there is been a mild improvement in lung volumes. Impression: Severe restrictive ventilatory defect with a symmetric reduction diffusing capacity, but some mild improvement compared to previous study.
== END | disposition home or self-care (01) ==
LOC: PSN 09:43
PROVIDERS: PCP Family Medicine; Referring Provider Internal Medicine Critical Care Medicine; Visit Provider Internal Medicine Critical Care Medicine
DX: J84.10 Pulmonary fibrosis, unspecified (principal)
CPT/HCPCS: 94060; 94726; 94729

== ENCOUNTER → 2022-12-16 | Outpatient (CLI) | payer BC, SELFPAY ==
--- NOTE | 2022-12-18 09:12 | PFT ---
INTRODUCTION: The patient is a 67-year-old female who presents for pulmonary function studies secondary to a diagnosis of pulmonary fibrosis. Respiratory therapy reported good patient effort. Bronchodilators were used during testing. INTERPRETATION: Forced expiration spirometry demonstrates no evidence of a large airways obstructive ventilatory defect. There was no significant response to aerosolized bronchodilators. Body plethysmography was performed and revealed a decreased TLC to 3.0 L, 50% of predicted, indicative of a severe restrictive ventilatory impairment. Diffusing capacity by single breath CO was reduced at 37% of predicted. IMPRESSION: Severe restrictive ventilatory impairment with symmetric reduction in diffusing capacity.
== END | disposition home or self-care (01) ==
PROVIDERS: PCP Family Medicine; Referring Provider Internal Medicine Critical Care Medicine; Visit Provider Internal Medicine Critical Care Medicine
DX: J84.10 Pulmonary fibrosis, unspecified (principal)
CPT/HCPCS: 94060; 94726; 94729